=== PATIENT | female | born 1965 | race African-American/Black ===

== ENCOUNTER 2017-03-07 10:14 | Day surgery (SDC) | payer OTHER ==
[2017-03-04 12:32] VITALS: BMI 30.4
[2017-03-07] MEDS ORDERED: IBUPROFEN 800 MG/8 ML IJ IVPB PRN (14:10)
[2017-03-07] MEDS ORDERED: ACETAMINOPHEN 1000 MG/100 ML VIAL (NON FORMULARY) IVPB ONE (14:10)
--- NOTE | 2017-03-07 14:10 | HP ---
History & Physical Update - History History: No Change - Physical Physical: No Change - Assessment Assessment: No Change - Plan Plan: No Change
[2017-03-07] MEDS ORDERED: DEXTROSE 5%-0.45% SALINE 1,000 ML IV SCH (14:15)
[2017-03-07] MEDS ORDERED: MIDAZOLAM HCL 2 MG/2 ML SINGLE DOSE VIAL ONE (14:39)
[2017-03-07] MEDS ORDERED: ceFAZolin SODIUM 1 GM VIAL IVPB ONE (14:56)
[2017-03-07] MEDS ORDERED: PROPOFOL 20 ML ONE ×3 (15:00)
[2017-03-07] MEDS ORDERED: LIDOCAINE HCL 2% JELLY 10 ML CARTRIDGE TP ONE (15:03)
--- NOTE | 2017-03-07 15:13 | OP ---
Operative Note - Note: Operative Date: 03/07/17 Pre-Operative Diagnosis: pelvic pain, dysuria Operation: cystoscopy, vaginal examination under anesthesia, Findings: normal bladder. no fistula, normal exam Post-Operative Diagnosis: Same as Pre-op Surgeon: Filipe Jones Anesthesia: General
[2017-03-07] MEDS ORDERED: LACTATED RINGERS SOLUTION 1,000 ML IV SCH (15:30)
[2017-03-07] MEDS ORDERED: ACETAMINOPHEN INJECTION 100 ML IVPB ONE (15:40)
[2017-03-07 16:37] VITALS: PULSE 78
--- NOTE | 2017-03-07 17:06 | OP ---
DATE OF OPERATION: 03/07/2017 PREOPERATIVE DIAGNOSES: Pelvic pain. Dysuria. POSTOPERATIVE DIAGNOSES: Pelvic pain. Dysuria. PROCEDURES: Cystoscopy. Vaginal examination under anesthesia. SPECIMENS: None. ESTIMATED BLOOD LOSS: None. SURGEON: Filipe Jones MD DRAINS: None. PREOPERATIVE INDICATION: The patient is a 51-year-old female who comes in with severe pelvic pain and dysuria. She is unable to be examined in the office due to the discomfort. She comes to the OR for cystoscopy and examination under anesthesia. Her history is approximately as follows. In 2007, she had a vaginal prolapse repair including anterior colporrhaphy, a rectocele, and a transobturator sling using a biological material called Surgisis made by [facility]. Six months after that, in 2008, she had a cystoscopy to evaluate persistent pain. 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 According to the operative note, it was unroofed and fulgurated. Since then, she continues to have dysuria and pelvic pain. She is new to me. We are bringing her to the OR for a cystoscopy and examination under anesthesia. OPERATION: The patient was brought to the OR, placed on the table in the supine position, given general anesthesia and IV antibiotics, and placed in the modified lithotomy position. The groin was prepped and draped sterilely. A timeout was performed. Cystoscopy was performed. The urethra appeared to be shortened and the posterior wall appeared to be thinned. The cystoscopy revealed the aforementioned unroofed urethral diverticulum. However, no active stones or pus were seen and no restriction of fluid was seen. This previous cyst was open into the urethra with free drainage. The bladder itself appeared to be normal. Both UOs were visualized with clear efflux. No tumors or stone was seen. No evidence of any bladder injuries were seen. After the scope was removed, the vaginal speculum was placed and the anterior vaginal wall was examined. Again, other than what appeared to be a thinning of the posterior aspect of the urethra, no evidence of any suture material or sling material or fistula was seen. At the end of the case, lidocaine jelly was infused per urethra. The patient was woken up. FILIPE JONES M.D. [id number]
[2017-03-07 17:30] VITALS: BP 130/80; TEMP 98
== END 2017-03-07 17:00 | disposition home or self-care (01) ==
LOC: JASU-SURG 10:14
PROVIDERS: ATTEND Urology
PROC: 0WJJ0ZZ Inspection of Pelvic Cavity, Open Approach (ICD-10-PCS; 2017-03-07)
PROC: 0TJB8ZZ Inspection of Bladder, Via Natural or Artificial Opening Endoscopic (ICD-10-PCS; principal; 2017-03-07 14:30)
DX: R30.0 Dysuria (principal); R10.2 Pelvic and perineal pain
CPT/HCPCS: 94760

== ENCOUNTER → 2018-11-20 | Day surgery (SDC) | payer OTHER ==
[2018-11-19 14:50] VITALS: BMI 36.5
[~2018-11-20] MED LIST: ACETAMINOPHEN 1000 MG/100 ML VIAL (NON FORMULARY) IVPB ONE; ACETAMINOPHEN INJECTION 100 ML IVPB ONE; BOTULINUM TOXIN A 100 UNITS VIAL IM ONE; DEXAMETHASONE SOD PHOSPHATE 4 MG/1 ML VIAL ONE; DEXTROSE 5%-0.45% SALINE 1,000 ML IV SCH; KETOROLAC TROMETHAMINE 30 MG/1 ML VIAL ONE; LIDOCAINE HCL/PF 2% SDV 5ML VIAL ONE; ONDANSETRON 4 MG/2 ML VIAL IVPUSH PRN; PROMETHAZINE HCL 25 MG/1 ML VIAL IVPUSH PRN; PROPOFOL 20 ML ONE; ceFAZolin SODIUM 1 GM VIAL IVPB ONE; oxyCODONE HCL 5 MG TABLET PO PRN
[2018-11-20 17:28] VITALS: TEMP 98
--- NOTE | 2018-11-20 17:35 | OP ---
DATE OF OPERATION: 11/20/2018 PREOPERATIVE DIAGNOSIS: Urge urinary incontinence. POSTOPERATIVE DIAGNOSIS: Urge urinary incontinence. PROCEDURE: Cystoscopy, injection of botulinum toxin A. SURGEON: Filipe Jones MD ESTIMATED BLOOD LOSS: None. FINDINGS: Normal bladder. No tumors or stones seen. DRAINS: None. PREOPERATIVE INDICATIONS: The patient is a 53-year-old female with urge urinary incontinence. She has failed conventional medical therapies and comes for Botox injection. Risks, benefits, and alternatives discussed including the risk of urinary retention. Patient understands these risks and agrees to the procedure. OPERATION: The patient was brought to the OR, placed on the table in the supine position, given general anesthesia and IV antibiotics, and placed in the modified lithotomy position. The groin was prepped and draped sterilely. Timeout was performed. Cystoscopy was performed. The urethra appeared to be normal. The bladder itself: There were no tumors or stones seen. Next, 10 mL of a solution with normal saline and 100 units of botulinum toxin A were used. Twenty injections, each 0.5 mL, were placed throughout the bladder including the trigone and the rest of the bladder as well. These injections were done underneath the mucosal layer, into the muscle layer. No significant bleeding was seen. The bladder was emptied. The patient was woken up. FILIPE JONES M.D. [id number]
[2018-11-20 17:40] VITALS: BP 142/86; PULSE 88
== END | disposition home or self-care (01) ==
LOC: JASU-SURG 12:15
PROVIDERS: ATTEND Urology
PROC: 3E0K8GC Introduction of Other Therapeutic Substance into Genitourinary Tract, Via Natural or Artificial Opening Endoscopic (ICD-10-PCS; principal; 2018-11-20 14:30)
DX: N39.41 Urge incontinence (principal)
CPT/HCPCS: 94760; J0131

== ENCOUNTER 2019-06-04 08:12 | Day surgery (SDC) | payer OTHER | END 2019-06-04 15:30 | disposition home or self-care (01) | LOC: JASU-SURG 08:12 ==

== ENCOUNTER 2022-03-12 10:32 | Inpatient (IN) | payer OTHER ==
[2022-03-12 11:01] VITALS: BMI 37.2
[2022-03-12] MEDS ORDERED: BISMUTH SUBSALICYLATE 262 MG/15 ML BTL PO PRN (11:01)
[2022-03-12] MEDS ORDERED: IBUPROFEN 400 MG TABLET (FP) PO PRN (11:01)
[2022-03-12] MEDS ORDERED: MAGNESIUM HYDROX 2400MG/30ML ORAL SUSPENSION 30 ML CUP PO PRN (11:01)
[2022-03-12] MEDS ORDERED: BENZOCAINE/MENTHOL (CHLORASEPTIC ) LOZENGE MM PRN (11:01)
[2022-03-12] MEDS ORDERED: DICYCLOMINE HCL 10 MG CAPSULE PO PRN (11:01)
[2022-03-12] MEDS ORDERED: NALOXONE HCL (KLOXXADO) 8 MG SPRAY NS PRN (11:01)
[2022-03-12] MEDS ORDERED: IBUPROFEN 600 MG TABLET (FP) PO PRN (11:01)
[2022-03-12] MEDS ORDERED: MAGNESIUM CITRATE 300 ML BOTTLE PO PRN (11:01)
[2022-03-12] MEDS ORDERED: MAG HYDROX/AL HYDROX/SIMETH 30 ML UNIT-DOSE CUP PO PRN (11:01)
[2022-03-12] MEDS ORDERED: ONDANSETRON *ODT* 4 MG TABLET SL PRN (11:01)
[2022-03-12] MEDS ORDERED: LOPERAMIDE HCL 2 MG CAPSULE PO PRN (11:01)
[2022-03-12] MEDS ORDERED: ACETAMINOPHEN 325 MG TABLET (FP) PO PRN ×2 (11:01)
[2022-03-12] MEDS ORDERED: ERGOCALCIFEROL (VIT D2) 50,000 UNIT (1.25 MG) CAPSULE PO SCH (11:15)
[2022-03-12] MEDS: chlordiazePOXIDE HCL 25 MG CAPSULE PO SCH ×3 (12:53→22:26)
[2022-03-12] MEDS: ASPIRIN 81 MG CHEWABLE TABLETS PO SCH (12:53)
[2022-03-12] MEDS: PRENATAL VITAMINS W/ FOLIC ACID TABLET (FP) PO SCH (12:56)
[2022-03-12] MEDS: ALBUTEROL SO4 HFA INHALER IH SCH ×2 (12:57→18:07)
[2022-03-12] MEDS: hydrOXYzine PAMOATE 25 MG CAPSULE (FP) PO SCH ×3 (13:03→22:26)
[2022-03-12 15:02] LABS: HEMATOCRIT 33.3 % (32.4-45.2); HEMOGLOBIN 11.1 GM/dL (10.7-15.3); MCHC 33.3 g/dl (32.0-36.0); MEAN CELL VOLUME 99.2 fl (80-96); MEAN PLT VOLUME 7.1 fl (7.5-11.1); PLATELET COUNT 465 10^3/uL (134-434); RBC 3.36 M/mm3 (3.60-5.2); RDW 14.1 % (11.6-15.6); WHITE BLOOD COUNT 7.4 K/mm3 (4.0-10.0)
[2022-03-12 15:11] LABS: CALCIUM 8.8 mg/dL (8.5-10.1)
[2022-03-12 15:15] LABS: BLOOD UREA NITROGEN 27.4 mg/dL (7-18); CREATININE 1.4 mg/dL (0.55-1.3)
[2022-03-12 15:16] LABS: BILIRUBIN,TOTAL 0.7 mg/dL (0.2-1)
[2022-03-12 15:19] LABS: TOT PROT 7.8 g/dl (6.4-8.2)
[2022-03-12] MEDS: METHOCARBAMOL 500 MG TABLET PO PRN (17:26)
[2022-03-12] MEDS: MELATONIN 5 MG TABLETS PO SCH (22:26)
[2022-03-12] MEDS: THIAMINE HCL 100 MG TABLET (FP) PO SCH (22:26)
[2022-03-12] MEDS: ATORVASTATIN CA 20 MG TABLET (FP) PO SCH (22:26)
[2022-03-13] MEDS: ALBUTEROL SO4 HFA INHALER IH SCH ×4 (00:58→18:26)
[2022-03-13] MEDS: chlordiazePOXIDE HCL 25 MG CAPSULE PO SCH ×4 (05:46→22:15)
[2022-03-13] MEDS: hydrOXYzine PAMOATE 25 MG CAPSULE (FP) PO SCH ×5 (05:46→22:15)
[2022-03-13] MEDS: PRENATAL VITAMINS W/ FOLIC ACID TABLET (FP) PO SCH (10:02)
[2022-03-13] MEDS: ASPIRIN 81 MG CHEWABLE TABLETS PO SCH (10:02)
[2022-03-13] MEDS: FERROUS SO4 325 MG TABLET (FP) PO SCH (10:03)
[2022-03-13] MEDS: LORATADINE 10 MG TABLET PO SCH (10:03)
[2022-03-13] MEDS: METHOCARBAMOL 500 MG TABLET PO PRN ×2 (10:04→17:46)
[2022-03-13] MEDS: EMTRICITAB/RILPIVIRI/TENOF ALA (ODEFSEY) TABLET PO SCH (11:41)
[2022-03-13] MEDS: NIFEdipine E.R. 90 MG TABLET PO SCH (11:41)
[2022-03-13] MEDS: DOLUTEGRAVIR SODIUM 50 MG TABLET (NON-FORMULARY) PO SCH (11:42)
[2022-03-13] MEDS: chlordiazePOXIDE HCL 25 MG CAPSULE PO PRN (13:34)
[2022-03-13] MEDS: PHENAZOPYRIDINE HCL 200 MG PO SCH ×2 (15:12→18:18)
[2022-03-13] MEDS: ATORVASTATIN CA 20 MG TABLET (FP) PO SCH (22:15)
[2022-03-13] MEDS: THIAMINE HCL 100 MG TABLET (FP) PO SCH (22:15)
[2022-03-13] MEDS: MELATONIN 5 MG TABLETS PO SCH (22:15)
[2022-03-14] MEDS: ALBUTEROL SO4 HFA INHALER IH SCH ×4 (00:34→19:19)
[2022-03-14] MEDS: chlordiazePOXIDE HCL 25 MG CAPSULE PO SCH ×4 (05:51→22:18)
[2022-03-14] MEDS: hydrOXYzine PAMOATE 25 MG CAPSULE (FP) PO SCH ×5 (05:52→21:56)
[2022-03-14] MEDS: EMTRICITAB/RILPIVIRI/TENOF ALA (ODEFSEY) TABLET PO SCH (08:22)
[2022-03-14] MEDS: METHOCARBAMOL 500 MG TABLET PO PRN ×2 (09:59→17:52)
[2022-03-14] MEDS: PRENATAL VITAMINS W/ FOLIC ACID TABLET (FP) PO SCH (10:00)
[2022-03-14] MEDS: FERROUS SO4 325 MG TABLET (FP) PO SCH (10:00)
[2022-03-14] MEDS ORDERED: LISINOPRIL 10 MG TABLET PO SCH (10:00)
[2022-03-14] MEDS: ASPIRIN 81 MG CHEWABLE TABLETS PO SCH (10:00)
[2022-03-14] MEDS: LORATADINE 10 MG TABLET PO SCH (10:00)
[2022-03-14] MEDS: NIFEdipine E.R. 90 MG TABLET PO SCH (10:00)
[2022-03-14] MEDS: PHENAZOPYRIDINE HCL 200 MG PO SCH ×4 (10:01→21:57)
[2022-03-14] MEDS: DOLUTEGRAVIR SODIUM 50 MG TABLET (NON-FORMULARY) PO SCH (10:02)
[2022-03-14] MEDS: chlordiazePOXIDE HCL 25 MG CAPSULE PO PRN (10:03)
[2022-03-14] MEDS: ATORVASTATIN CA 20 MG TABLET (FP) PO SCH (21:55)
[2022-03-14] MEDS: THIAMINE HCL 100 MG TABLET (FP) PO SCH (21:55)
[2022-03-14] MEDS: MELATONIN 5 MG TABLETS PO SCH (21:56)
[2022-03-15] MEDS ORDERED: chlordiazePOXIDE HCL 10 MG CAPSULE PO PRN
[2022-03-15] MEDS ORDERED: chlordiazePOXIDE HCL 10 MG CAPSULE PO SCH (05:00)
[2022-03-15] MEDS: hydrOXYzine PAMOATE 25 MG CAPSULE (FP) PO SCH (05:27)
[2022-03-15 07:27] VITALS: BP 145/84; PULSE 73; TEMP 96.9
[2022-03-15] MEDS: PHENAZOPYRIDINE HCL 200 MG PO SCH (08:04)
[2022-03-15] MEDS: EMTRICITAB/RILPIVIRI/TENOF ALA (ODEFSEY) TABLET PO SCH (08:04)
[2022-03-15] MEDS ORDERED: NIFEdipine E.R 60 MG TABLET PO SCH (10:00)
[2022-03-16] MEDS ORDERED: chlordiazePOXIDE HCL 10 MG CAPSULE PO SCH (05:00)
[2022-03-17] MEDS ORDERED: chlordiazePOXIDE HCL 10 MG CAPSULE PO ONE (05:00)
== END 2022-03-15 09:05 | disposition home or self-care (01) | DRG 774 ==
LOC: YASAS 10:32 → Y6N 12:17
PROVIDERS: ADMIT Allergy & Immunology; ATTEND Surgery
PROC: HZ2ZZZZ Detoxification Services for Substance Abuse Treatment (ICD-10-PCS; principal; 2022-03-12)
DX: F10.230 Alcohol dependence with withdrawal, uncomplicated (principal); F14.20 Cocaine dependence, uncomplicated; F17.210 Nicotine dependence, cigarettes, uncomplicated; Z21 Asymptomatic human immunodeficiency virus [HIV] infection status; D50.9 Iron deficiency anemia, unspecified; I10 Essential (primary) hypertension; E78.5 Hyperlipidemia, unspecified; J30.9 Allergic rhinitis, unspecified; E66.9 Obesity, unspecified; Z68.37 Body mass index [BMI] 37.0-37.9, adult; Z78.0 Asymptomatic menopausal state
CPT/HCPCS: 36415; 80053; 84520; 85027; 86780; C9803-CS; U0003; U0005

== ENCOUNTER 2022-08-24 06:06 | Day surgery (SDC) | payer OTHER ==
[2022-08-20 12:24] VITALS: BMI 36.0
[2022-08-24 07:19] VITALS: TEMP 97.6
[2022-08-24] MEDS ORDERED: EPINEPHrine 1:1,000 1,000 MCG/ML ML ONE (08:17)
[2022-08-24] MEDS ORDERED: BUPIVACAINE HCL/EPINEPHRINE/PF 30 ML VIAL IJ ONE (08:25)
[2022-08-24] MEDS ORDERED: ROPIVACAINE HCL 0.5% 30ML VIAL ONE (08:38)
[2022-08-24] MEDS ORDERED: MIDAZOLAM HCL 2 MG/2 ML SINGLE DOSE VIAL ONE ×3 (08:38→10:35)
[2022-08-24] MEDS ORDERED: GLYCOPYRROLATE 0.2 MG/1 ML VIAL ONE (08:38)
[2022-08-24] MEDS ORDERED: DEXAMETHASONE SOD PHOSPHATE/PF 10 MG/ML SDV ONE (08:38)
[2022-08-24] MEDS ORDERED: PROPOFOL 20 ML ONE (08:48)
[2022-08-24] MEDS ORDERED: ROCURONIUM BROMIDE 50 MG/5 ML SYRINGE ONE (08:48)
[2022-08-24] MEDS ORDERED: ceFAZolin SODIUM 1 GM VIAL ONE (08:49)
[2022-08-24] MEDS ORDERED: LIDOCAINE HCL/PF 2% SDV 5ML VIAL ONE (08:49)
[2022-08-24] MEDS ORDERED: DEXAMETHASONE SOD PHOSPHATE 4 MG/1 ML VIAL ONE (08:49)
[2022-08-24] MEDS ORDERED: ONDANSETRON 4 MG/2 ML VIAL ONE (08:49)
[2022-08-24] MEDS ORDERED: KETOROLAC TROMETHAMINE 30 MG/1 ML VIAL ONE (08:49)
[2022-08-24] MEDS ORDERED: ONDANSETRON 4 MG/2 ML VIAL IVPUSH PRN (11:05)
[2022-08-24] MEDS ORDERED: oxyCODONE HCL 5 MG TABLET PO PRN ×2 (11:05)
[2022-08-24] MEDS ORDERED: ACETAMINOPHEN 325 MG TABLET (FP) PO PRN (11:05)
[2022-08-24 11:28] VITALS: RESP 18
[2022-08-24 11:52] VITALS: BP 119/71; PULSE 86
== END 2022-08-24 12:40 | disposition home or self-care (01) ==
LOC: FASU 06:06
PROVIDERS: ATTEND Orthopaedic Surgery
PROC: 0RBK4ZZ Excision of Left Shoulder Joint, Percutaneous Endoscopic Approach (ICD-10-PCS; principal; 2022-08-24 09:29)
PROC: 0LS44ZZ Reposition Left Upper Arm Tendon, Percutaneous Endoscopic Approach (ICD-10-PCS; 2022-08-24 09:29)
PROC: 0RNK4ZZ Release Left Shoulder Joint, Percutaneous Endoscopic Approach (ICD-10-PCS; 2022-08-24 09:29)
DX: S46.012D Strain of muscle(s) and tendon(s) of the rotator cuff of left shoulder, subsequent encounter (principal); M75.22 Bicipital tendinitis, left shoulder; M75.52 Bursitis of left shoulder; M65.822 Other synovitis and tenosynovitis, left upper arm; S43.432A Superior glenoid labrum lesion of left shoulder, initial encounter; M75.02 Adhesive capsulitis of left shoulder; X58.XXXD Exposure to other specified factors, subsequent encounter; X58.XXXA Exposure to other specified factors, initial encounter; Y93.9 Activity, unspecified; Y92.9 Unspecified place or not applicable
CPT/HCPCS: 88304-TC; C1713

== ENCOUNTER 2023-12-23 08:32 | Inpatient (IN) | payer OTHER ==
[2023-12-23 09:00] VITALS: BMI 33.1
[2023-12-23] MEDS ORDERED: MAGNESIUM HYDROX 2400MG/30ML ORAL SUSPENSION 30 ML CUP PO PRN (10:03)
[2023-12-23] MEDS ORDERED: MAG HYDROX/AL HYDROX/SIMETH 30 ML UNIT-DOSE CUP PO PRN (10:03)
[2023-12-23] MEDS ORDERED: LOPERAMIDE HCL 2 MG CAPSULE PO PRN (10:03)
[2023-12-23] MEDS ORDERED: BENZONATATE 200 MG CAPSULE PO PRN (10:03)
[2023-12-23] MEDS ORDERED: NALOXONE HCL (KLOXXADO) 8 MG SPRAY NS PRN (10:03)
[2023-12-23] MEDS ORDERED: guaiFENesin 600 MG TABLET.ER (FP) PO PRN (10:03)
[2023-12-23] MEDS ORDERED: IBUPROFEN 400 MG TABLET (FP) PO PRN (10:03)
[2023-12-23] MEDS ORDERED: POLYETHYLENE GLYCOL (HEALTHYLAX) 3350 17 GM PACKET PO PRN (10:03)
[2023-12-23] MEDS ORDERED: BENZOCAINE/MENTHOL (CHLORASEPTIC ) LOZENGE MM PRN (10:03)
[2023-12-23] MEDS ORDERED: NALOXONE HCL 0.4 MG/ML VIAL IM PRN (10:03)
[2023-12-23] MEDS ORDERED: NICOTINE POLACRILEX 2 MG GUM BUC PRN (10:03)
[2023-12-23] MEDS ORDERED: TUBERCULIN PPD 5 TU/0.1ML VIAL ID ONE (13:38)
[2023-12-23] MEDS: TUBERCULIN PPD 5 TU/0.1ML SYRINGE (IN PATIENT USE ONLY) ID ONE (13:43)
[2023-12-23 18:58] LABS: EPI CELLS 7 /uL (0-25.1); HYALINE CASTS 0 /uL (0-3.1); PH,URINE 6.5 (5.0-8.0); URINE APPEARANCE CLOUDY; URINE BACTERIA >9,000 /uL (0-1359); URINE BILIRUBIN NEGATIVE (NEGATIVE); URINE COLOR YELLOW; URINE GLUCOSE (UA) NEGATIVE (NEGATIVE); URINE KETONE NEGATIVE (NEGATIVE); URINE LEUK ESTERASE 3+ (NEGATIVE); URINE NITRITE NEGATIVE (NEGATIVE); URINE PROTEIN TRACE (NEGATIVE); URINE RBC 94 /uL (0-23.9); URINE WBC 2329 /uL (0-25.8)
[2023-12-23] MEDS: ATORVASTATIN CA 20 MG TABLET (FP) PO SCH (21:21)
[2023-12-23] MEDS: THIAMINE HCL 100 MG TABLET (FP) PO SCH (21:22)
[2023-12-23] MEDS: SUVOREXANT 10 MG TABLET PO PRN (21:22)
[2023-12-23] MEDS ORDERED: MELATONIN 5 MG TABLETS PO SCH (22:00)
[2023-12-24] MEDS: EMTRICITAB/RILPIVIRI/TENOF ALA (ODEFSEY) TABLET PO SCH (10:02)
[2023-12-24] MEDS: ASPIRIN 81 MG CHEWABLE TABLETS PO SCH (10:03)
[2023-12-24] MEDS: DOLUTEGRAVIR SODIUM 50 MG TABLET (NON-FORMULARY) PO SCH (10:03)
[2023-12-24] MEDS: FERROUS SO4 325 MG TABLET (FP) PO SCH (10:03)
[2023-12-24] MEDS: PRENATAL VITAMINS W/ FOLIC ACID TABLET (FP) PO SCH (10:04)
[2023-12-24 11:38] LABS: HEMATOCRIT 36.4 % (32.4-45.2); HEMOGLOBIN 11.9 GM/dL (10.7-15.3); MCH 32.7 pg (25.7-33.7); MCHC 32.7 g/dl (32.0-36.0); MEAN PLT VOLUME 8.1 fl (7.5-11.1); PLATELET COUNT 373 10^3/uL (134-434); RBC 3.64 M/mm3 (3.60-5.2); RDW 13.8 % (11.6-15.6)
[2023-12-24 11:54] LABS: POTASSIUM 3.8 mmol/L (3.5-5.1)
[2023-12-24 12:16] LABS: ALBUMIN 3.6 g/dl (3.4-5.0); BLOOD UREA NITROGEN 11.2 mg/dL (7-18); CALCIUM 8.8 mg/dL (8.5-10.1)
[2023-12-24 12:20] LABS: CREATININE 1.2 mg/dL (0.55-1.3)
[2023-12-24 12:21] LABS: TOT PROT 7.4 g/dl (6.4-8.2)
[2023-12-24 12:23] LABS: BILIRUBIN,TOTAL 0.6 mg/dL (0.2-1)
[2023-12-24] MEDS: hydrOXYzine PAMOATE 25 MG CAPSULE (FP) PO PRN (21:15)
[2023-12-25] MEDS ORDERED: tiZANidine HCL 4 MG TABLET PO PRN (09:11)
[2023-12-25] MEDS: IBUPROFEN 600 MG TABLET (FP) PO PRN (09:57)
[2023-12-25] MEDS ORDERED: NIFEdipine E.R 60 MG TABLET PO SCH (10:00)
[2023-12-25] MEDS: NIFEdipine E.R 60 MG TABLET PO SCH (10:56)
[2023-12-25] MEDS: BACLOFEN 10 MG TABLET (FP) PO SCH (14:39)
[2023-12-25] MEDS: AMITRIPTYLINE HCL 25 MG TABLET PO SCH (21:26)
[2023-12-26] MEDS ORDERED: FERROUS SO4 325 MG TABLET (FP) PO SCH (11:33)
[2023-12-26] MEDS: FERROUS SO4 325 MG TABLET (FP) PO SCH (11:41)
[2023-12-26] MEDS: SUVOREXANT 10 MG TABLET PO PRN (21:21)
[2023-12-27] MEDS: BACLOFEN 10 MG TABLET (FP) PO SCH (21:19)
[2023-12-29] MEDS: SUVOREXANT 10 MG TABLET PO PRN (21:16)
[2023-12-30] MEDS: NITROFURANTOIN MONOHYD/M-CRYST 100 MG CAPSULE PO SCH (21:54)
[2023-12-31] MEDS: ONDANSETRON *ODT* 4 MG TABLET SL PRN (02:24)
[2023-12-31] MEDS: ACETAMINOPHEN 325 MG TABLET (FP) PO PRN (08:03)
[2023-12-31] MEDS: PANTOPRAZOLE 40 MG TABLET PO SCH (10:09)
[2024-01-01 05:37] VITALS: RESP 18; TEMP 97.2
[2024-01-01 08:51] VITALS: BP 123/75; PULSE 95
== END 2024-01-01 10:05 | disposition home or self-care (01) | DRG 772 ==
LOC: YASAS 08:32 → Y5N 11:03
PROVIDERS: ADMIT Allergy & Immunology; ATTEND Psychiatry & Neurology Pain Medicine
PROC: HZ42ZZZ Group Counseling for Substance Abuse Treatment, Cognitive-Behavioral (ICD-10-PCS; principal; 2023-12-23)
DX: F10.20 Alcohol dependence, uncomplicated (principal); F14.20 Cocaine dependence, uncomplicated; F17.210 Nicotine dependence, cigarettes, uncomplicated; F41.9 Anxiety disorder, unspecified; F32.A Depression, unspecified; F43.10 Post-traumatic stress disorder, unspecified; Z21 Asymptomatic human immunodeficiency virus [HIV] infection status; E78.5 Hyperlipidemia, unspecified; I10 Essential (primary) hypertension; G47.00 Insomnia, unspecified; N39.0 Urinary tract infection, site not specified; B96.20 Unspecified Escherichia coli [E. coli] as the cause of diseases classified elsewhere; D50.9 Iron deficiency anemia, unspecified; Z62.810 Personal history of physical and sexual abuse in childhood; Z91.410 Personal history of adult physical and sexual abuse
CPT/HCPCS: 36415; 80053; 80305; 80307; 81003; 85027; 86780; 87086; 87186; 93005; 93010; J0475; Q0162

== ENCOUNTER 2024-09-03 03:52 | Day surgery (SDC) | payer OTHER ==
[2024-09-02 08:40] VITALS: BMI 33.4
[2024-09-03] MEDS ORDERED: MIDAZOLAM HCL 2 MG/2 ML SINGLE DOSE VIAL ONE ×2 (07:43→09:17)
[2024-09-03] MEDS ORDERED: PROPOFOL 20 ML ONE (07:43)
[2024-09-03] MEDS ORDERED: DEXTROSE 5%-0.45% SALINE 1,000 ML IV SCH (08:00)
[2024-09-03] MEDS ORDERED: LIDOCAINE HCL/PF 2% SDV 5ML VIAL ONE (08:07)
[2024-09-03] MEDS: ceFAZolin SODIUM 1 GM VIAL IVPB ONE (08:12)
[2024-09-03] MEDS ORDERED: DEXAMETHASONE SOD PHOSPHATE 4 MG/1 ML VIAL ONE (08:14)
[2024-09-03] MEDS ORDERED: ONDANSETRON 4 MG/2 ML VIAL ONE ×2 (08:14→08:56)
[2024-09-03] MEDS ORDERED: ceFAZolin SODIUM 1 GM VIAL ONE (08:14)
[2024-09-03] MEDS ORDERED: KETOROLAC TROMETHAMINE 30 MG/1 ML VIAL ONE (08:14)
[2024-09-03] MEDS ORDERED: ONDANSETRON 4 MG/2 ML VIAL IVPUSH PRN (09:14)
[2024-09-03] MEDS ORDERED: LACTATED RINGERS SOLUTION 1,000 ML IV SCH (09:15)
[2024-09-03] MEDS: MIDAZOLAM HCL 2 MG/2 ML SINGLE DOSE VIAL IVPUSH ONE (09:17)
[2024-09-03 10:53] VITALS: BP 125/97; PULSE 70; RESP 18
[2024-09-03 11:24] VITALS: TEMP 97.4
[2024-09-03] MEDS ORDERED: oxyCODONE HCL 5 MG TABLET ONE (11:57)
[2024-09-03] MEDS: oxyCODONE HCL 5 MG TABLET PO PRN (12:04)
== END 2024-09-03 13:45 | disposition home or self-care (01) ==
LOC: JASU-SURG 03:52
PROVIDERS: ATTEND Urology
PROC: 0TBD0ZZ Excision of Urethra, Open Approach (ICD-10-PCS; principal; 2024-09-03 08:00)
DX: N36.1 Urethral diverticulum (principal)
CPT/HCPCS: 88304-TC; 94760